=== PATIENT | female | born 1950 | race Caucasian/White ===

== ENCOUNTER → 2024-10-31 | Outpatient (CLI) | payer OTHER ==
--- NOTE | 2024-10-31 14:25 | HMCIMG ---
MR SPINAL CANAL, LUMBAR WO CON REASON: M47.896 Other spondylosis, lumbar region COMPARISON: None TECHNIQUE: Routine lumbar imaging protocol was performed. FINDINGS: There is severe interspace narrowing at all lumbar interspace levels. There is normal vertebral body alignment. There are no compression fractures. There are no focal osseous lesions. Axial images show widely patent spinal canal and thecal sac. There is no disc herniation or focal spinal stenosis. Neural foramina appear preserved. IMPRESSION: Severe 1. Severe disc degeneration at multiple levels. 2. No evidence of disc herniation or focal spinal stenosis.
== END | disposition home or self-care (01) ==
LOC: RAH 13:20
PROVIDERS: ATTEND Physician Assistant Medical
DX: M48.061 Spinal stenosis, lumbar region without neurogenic claudication (principal); M51.369 Other intervertebral disc degeneration, lumbar region without mention of lumbar back pain or lower extremity pain; M47.896 Other spondylosis, lumbar region
CPT/HCPCS: 72148

== ENCOUNTER → 2024-11-12 | Outpatient (CLI) | payer OTHER ==
--- NOTE | 2024-11-12 12:12 | HMCIMG ---
KNEE 3VWS RT REASON: RIGHT KNEE PAIN TECHNIQUE: 3 views were obtained. FINDINGS: There is no evidence of fracture or dislocation. There is no joint effusion. The soft tissues appear unremarkable. There is no evidence of a radiopaque foreign body. IMPRESSION: No acute findings.
--- NOTE | 2024-11-12 12:39 | HMCIMG ---
Exam: AP pelvis and right hip 2 views Reason: Groin muscle strain. FINDINGS: Bones appear normal. There are no fractures. There is no evidence of apical avulsion injury. Hip joint spaces are preserved. Soft tissues appear unremarkable. There are degenerative changes in the lower lumbar spine. IMPRESSION: 1. Degenerative changes in the lower lumbar spine. 2. Otherwise normal exam.
== END | disposition home or self-care (01) ==
LOC: RAH 10:50
PROVIDERS: ATTEND Physician Assistant Medical
DX: S76.011A Strain of muscle, fascia and tendon of right hip, initial encounter (principal); M25.561 Pain in right knee; X58.XXXA Exposure to other specified factors, initial encounter; Y93.89 Activity, other specified; Y92.89 Other specified places as the place of occurrence of the external cause; Y99.8 Other external cause status
CPT/HCPCS: 73502; 73562